=== PATIENT | male | born 1960 | race Hispanic/Latino ===

== ENCOUNTER 2016-11-23 11:25 | Outpatient (CLI) | payer OTHER | END 2016-11-23 11:26 | disposition home or self-care (01) | LOC: NAVSJIPCSP 11:25 | PROVIDERS: ATTEND Internal Medicine | DX: E78.5 Hyperlipidemia, unspecified (principal) | CPT/HCPCS: 36415; 80061 ==

== ENCOUNTER 2017-06-24 16:58 | Outpatient (CLI) | payer OTHER | END 2017-06-24 16:59 | disposition home or self-care (01) | LOC: NAV LAB 16:58 | PROVIDERS: ATTEND Urology | DX: R97.20 Elevated prostate specific antigen [PSA] (principal) | CPT/HCPCS: 84153 ==

== ENCOUNTER 2018-01-07 07:56 | Outpatient (CLI) | payer OTHER ==
[2018-01-07 08:47] LABS: Calc. Creatinine Clearance 0 mL/min (70-130); Estimated GFR-MDRD Greater than 90
--- NOTE | 2018-01-07 10:14 | CT ---
ABDOMEN AND PELVIC CT SCAN WITH AND WITHOUT IV CONTRAST WITH MULTIPHASE IMAGING: HISTORY: A 57-year-old male with gross hematuria, burning with urination. COMPARISON: 10/12/16. FINDINGS: The lung bases are clear. Again noted are 2 gallstones within the gallbladder without evidence for g allbladder wall thickening or pericholecystic fat stranding. The liver, pancreas, spleen, and adrena l glands are unremarkable. No renal calculi or acute obstruction. No solid or cystic renal mass. There is prostate gland enlargement with the prostate gland measuring approximately 5.4 x 5.5 cm in AP and transverse dimensions. IMPRESSION: No renal calculus or obstruction. No solid or cystic renal mass. Prostate gland enlargement. St able multiple cholelithiasis. No evidence for other significant acute process. POS: [facility]
== END 2018-01-07 07:57 | disposition home or self-care (01) ==
LOC: NAV CT 07:56
PROVIDERS: ATTEND Urology
DX: R31.0 Gross hematuria (principal); N40.0 Benign prostatic hyperplasia without lower urinary tract symptoms; K80.20 Calculus of gallbladder without cholecystitis without obstruction
CPT/HCPCS: 36415; 74178; 82565